=== PATIENT | female | born 1965 | race Caucasian/White ===

== ENCOUNTER 2022-10-13 17:10 | Emergency (ER) | payer OTHER ==
[~2022-10-13] VITALS: Ht 154.9 cm; Wt 81.6 kg
[2022-10-13] MEDS ORDERED: KETOROLAC TROMETHAMINE 30 MG/ML VIAL IM STA (18:12)
[2022-10-13] MEDS ORDERED: KETOROLAC TROMETHAMINE 30 MG/ML VIAL ONE (18:34)
[2022-10-13] MEDS ORDERED: NAPROSYN500 MG PO (20:35)
[2022-10-13] MEDS ORDERED: GABAPENTIN300 MG PO (20:36)
== END 2022-10-13 21:01 | disposition home or self-care (01) ==
LOC: FSED 17:20
DX: S00.83XA Contusion of other part of head, initial encounter (principal); S89.92XA Unspecified injury of left lower leg, initial encounter; S89.91XA Unspecified injury of right lower leg, initial encounter; S69.92XA Unspecified injury of left wrist, hand and finger(s), initial encounter; S69.91XA Unspecified injury of right wrist, hand and finger(s), initial encounter; W11.XXXA Fall on and from ladder, initial encounter; Y92.511 Restaurant or cafe as the place of occurrence of the external cause; Y93.89 Activity, other specified
CPT/HCPCS: 70450; 73090; 73110 ×2; 73130 ×2; 73560; 73562; 99283; J1885